=== PATIENT | female | born 1965 | race Hispanic/Latino ===

== ENCOUNTER 2021-12-03 06:12 | Observation (INO) | payer BC ==
[2021-12-01 14:21] LABS: BASOPHILS % 0.2 % (0.0-1.0); EOSINOPHILS % 0.1 % (0.0-6.0); HEMATOCRIT 35.9 % (34.2-44.1); LYMPHOCYTES % 11.5 % (18.0-39.1); MEAN CORPUSCULAR HEMOGLOBIN 30.5 pg (28-32); MEAN CORPUSCULAR HGB CONC 33.4 g/dL (31-35); MEAN CORPUSCULAR VOLUME 91.1 fL (81-99); MONOCYTES # (AUTO) 0.5 (0.2-0.8); MONOCYTES % 5.2 % (4.4-11.3); NEUTROPHILS # (AUTO) 7.2 (2.1-6.9); NEUTROPHILS % 82.7 % (38.7-80.0); PLATELET COUNT 326 x10e3/uL (140-360); RED BLOOD COUNT 3.94 x10e6/uL (3.6-5.1); RED CELL DISTRIBUTION WIDTH 12.6 % (11.7-14.4)
[2021-12-01 14:40] LABS: ALANINE AMINOTRANSFERASE 13 IU/L (0-55); ALBUMIN 3.7 g/dL (3.5-5.0); ALBUMIN/GLOBULIN RATIO 0.9 (0.8-2.0); ALKALINE PHOSPHATASE 68 IU/L (40-150); ANION GAP 12.4 mmol/L (8-16); BLOOD UREA NITROGEN 18 mg/dL (7-26); BUN/CREATININE RATIO 19 (6-25); CALCIUM 9.3 mg/dL (8.4-10.2); CARBON DIOXIDE 25 mmol/L (22-29); CHLORIDE 107 mmol/L (98-107); CREATININE, SERUM 0.95 mg/dL (0.57-1.11); GLUCOSE 115 mg/dL (74-118); POTASSIUM 4.4 mmol/L (3.5-5.1); SODIUM 140 mmol/L (136-145)
[~2021-12-03] VITALS: Ht 162.6 cm; Wt 79.4 kg
[~2021-12-03 06:12] MED LIST: CALCIUM CARBON500 MG PO; IBUPROFEN200 MG PO; IBUPROFEN400 MG PO; IRON325 M1; OSTEO BI-FLEX1 EAC4; VITAMIN B12-FO1 EACH; VITAMIN B122500 MCG
[2021-12-03] MEDS ORDERED: BUPIVACAINE 0.25% 30ML SDV ONE (07:31)
[2021-12-03] MEDS ORDERED: LIDOCAINE 1% W/EPINEPHRINE 20 ML VIAL ONE (07:31)
[2021-12-03] MEDS ORDERED: ESTROGENS CONJUGATED VAGINAL CR 45 GM TUBE PV ONE (07:32)
[2021-12-03] MEDS ORDERED: MEPERIDINE HCL INJ 25 MG/ML VIAL IV PRN (08:00)
[2021-12-03] MEDS ORDERED: PROMETHAZINE HCL (IM) 25 MG/ML VIAL IM PRN (08:00)
[2021-12-03] MEDS ORDERED: ZOLPIDEM TARTRATE 5 MG TAB PO PRN (08:00)
[2021-12-03] MEDS ORDERED: DIPHENHYDRAMINE HCL 25 MG CAP PO PRN (08:00)
[2021-12-03] MEDS: LACTATED RINGER'S 1,000 ML IV SCH ×2 (08:00→21:34)
[2021-12-03] MEDS ORDERED: KETOROLAC TROMETHAMINE 30 MG/ML VIAL IM PRN (08:00)
[2021-12-03] MEDS ORDERED: ONDANSETRON HCL INJ 2MG/ML 2ML 2 MG/ML VIAL IV PRN (08:00)
[2021-12-03] MEDS ORDERED: HYDROMORPHONE 1MG/1ML INJ ONE (09:47)
[2021-12-03 12:13] VITALS: BP 106/68
[2021-12-03 12:16] VITALS: BP 106/68
[2021-12-03 12:35] VITALS: BP 106/68
[2021-12-03 15:42] VITALS: BP 99/62
[2021-12-03] MEDS ORDERED: DEXAMETHASONE SOD PHOS INJ 4 MG/ML SDV ONE (19:40)
[2021-12-03] MEDS ORDERED: PROPOFOL IV EMULSION 10 MG/ML 20 ML VIAL ONE (19:40)
[2021-12-03] MEDS ORDERED: KETOROLAC TROMETHAMINE 30 MG/ML VIAL ONE (19:40)
[2021-12-03] MEDS ORDERED: SEVOFLURANE INHAL SOLN 250 ML PEN BTL ONE (19:40)
[2021-12-03] MEDS ORDERED: GLYCOPYRROLATE INJ 0.2 MG/ML VIAL ONE (19:40)
[2021-12-03] MEDS ORDERED: NEOSTIGMINE 1 MG/ML 10ML VIAL ONE (19:40)
[2021-12-03] MEDS ORDERED: ONDANSETRON HCL INJ 2MG/ML 2ML 2 MG/ML VIAL ONE (19:40)
[2021-12-03] MEDS ORDERED: ROCURONIUM BROMIDE 10 MG/ML 5ML VIAL IV ONE (19:40)
[2021-12-03] MEDS ORDERED: POVIDONE IODINE 0.05% 0.05 % ML PO ONE (19:40)
[2021-12-03] MEDS ORDERED: ACETAMINOPHEN 1000 MG/100 ML IV ONE (19:44)
[2021-12-03 20:00] VITALS: BP 100/43
[2021-12-03] MEDS: HYDROCODONE/APAP 10MG-325MG TAB PO PRN (21:34)
[2021-12-04] VITALS (7 sets, daily range): BP systolic 98–142; BP diastolic 57–86
[2021-12-04] MEDS: HYDROCODONE/APAP 10MG-325MG TAB PO PRN ×3 (01:10→11:40)
[2021-12-04] MEDS: LACTATED RINGER'S 1,000 ML IV SCH ×3 (01:11→16:49)
[2021-12-04 05:22] LABS: HEMATOCRIT 29.3 % (34.2-44.1); HEMOGLOBIN 9.3 g/dL (12.0-16.0)
[2021-12-04] MEDS ORDERED: FENTANYL CITRATE/PF 100MCG/2 ML INJ ONE (13:24)
[2021-12-04] MEDS ORDERED: KETAMINE HCL INJ 50 MG/ML 10 ML VIAL ONE (13:24)
[2021-12-04] MEDS ORDERED: MIDAZOLAM HCL 2 MG/2 ML VIAL ONE (13:24)
[2021-12-04] MEDS: DOCUSATE SODIUM 100 MG CAP PO PRN ×2 (15:12→15:13)
[2021-12-04] MEDS ORDERED: ONDANSETRON HCL 4 MG ORAL DISINTEGRATING TAB PO PRN (16:00)
== END 2021-12-04 21:24 | disposition home or self-care (01) ==
LOC: OR 06:12 → PACU V 07:51 → MED/SURG3 11:40
PROVIDERS: ADMIT Obstetrics & Gynecology; ATTEND Obstetrics & Gynecology
DX: N81.4 Uterovaginal prolapse, unspecified (principal); Z01.818 Encounter for other preprocedural examination; F17.200 Nicotine dependence, unspecified, uncomplicated; D64.9 Anemia, unspecified
CPT/HCPCS: 0223U; 36415 ×3; 57265; 57282; 58262; 80053; 82948; 84702; 85014; 85018; 85025; 86850; 86900; 88305; 93005; G0378 ×2; J0131; J0690; J1100; J1170; J1885 ×2; J2175; J2250; J2405; J2704; J2710; J3010; J7121 ×2; 88307